=== PATIENT | male | born 1995 | race Two or more races ===

== ENCOUNTER 2023-04-11 18:39 | Emergency (ER) | payer OTHER ==
[~2023-04-11] VITALS: Ht 162.6 cm; Wt 70.5 kg
[2023-04-11 19:08] VITALS: BP 123/72; PULSE 78; RESP 20; TEMP 99; O2SAT 100
[2023-04-11] MEDS ORDERED: OMEP40CA21 PO (22:23)
[2023-04-11] MEDS ORDERED: MONT-47 PO (22:23)
[2023-04-11] MEDS ORDERED: AZIT250T83 PO (22:23)
== END 2023-04-11 22:51 | disposition home or self-care (01) ==
LOC: ER 18:39
DX: J02.9 Acute pharyngitis, unspecified (principal); Z20.822 Contact with and (suspected) exposure to COVID-19
CPT/HCPCS: 36415; 87502; 87503; 87811; 99283